=== PATIENT | male | born 1950 | race Caucasian/White ===

== ENCOUNTER 2022-12-14 20:43 | Inpatient (IN) | payer OTHER ==
[~2022-12-14] VITALS: Ht 185.4 cm; Wt 83.7 kg
[~2022-12-14 20:43] MED LIST: PIOG30 PO; THERA-D2000 UNIT PO; XARELTO20 MG PO
[2022-12-14 21:05] LABS: BASOPHILS ABSOLUTE AUTO 0.11 K/mm3 (0.00-0.23); BASOPHILS PERCENT AUTO 1 % (0-2); EOSINOPHILS ABSOLUTE AUTO 0.14 K/mm3 (0.00-0.68); EOSINOPHILS PERCENT AUTO 2 % (0-6); Hematocrit 42.9 % (37.0-53.0); Hemoglobin 14.4 g/dL (13.5-17.5); IMMATURE GRAN ABSOLUTE AUTO 0.01 K/mm3 (0.00-0.10); IMMATURE GRAN PERCENT AUTO 0 % (0-1); LYMPHOCYTES ABSOLUTE AUTO 0.89 K/mm3 (0.84-5.20); LYMPHOCYTES PERCENT AUTO 10 % (21-46); MONOCYTES PERCENT AUTO 8 % (4-13); Mean Corpuscular HGB 28.7 pg (26.0-34.0); Mean Corpuscular HGB Conc 33.6 g/dL (31.5-36.5); Mean Corpuscular Volume 86 fL (80-100); Mean Platelet Volume 9.6 fL (9.1-12.4); NEUTROPHILS ABSOLUTE AUTO 7.46 K/mm3 (1.96-9.15); NEUTROPHILS PERCENT AUTO 80 % (41-73); Platelet Count 417 K/mm3 (150-400); RDW Coefficient Variation 14.1 % (11.7-14.2); RDW Standard Deviation 43.3 fL (35.1-46.3); Red Blood Cell Count 5.01 M/mm3 (4.30-5.90); White Blood Cell Count 9.31 K/mm3 (4.00-11.30)
[2022-12-14 21:18] LABS: Albumin, Blood 3.2 g/dL (3.4-5.0); Albumin/Globulin Ratio 0.9 (0.8-1.8); Bilirubin, Total 0.6 mg/dL (0.1-1.0); Bun/Creatinine Ratio 16.7 (12.0-20.0); Calcium, Blood 8.9 mg/dL (8.5-10.1); Creatinine, Blood 1.26 mg/dL (0.60-1.20); Globulin, Blood 3.7 g/dL (2.2-4.0); Potassium, Blood 3.9 mmol/L (3.5-5.5); Total Protein, Blood 6.9 g/dL (6.4-8.2)
[2022-12-14 21:56] LABS: Magnesium, Blood 2.2 mg/dL (1.6-2.4)
[2022-12-14 22:15] LABS: Thyroid Stimulating Hormone 0.842 uIU/mL (0.360-4.800)
[2022-12-14] MEDS ORDERED: METO50ER PO (23:54)
[2022-12-14] MEDS ORDERED: METF500 PO (23:55)
[2022-12-14] MEDS ORDERED: TAMS.4ER PO (23:55)
[2022-12-14] MEDS ORDERED: GABA300 PO (23:55)
[2022-12-14] MEDS ORDERED: DURAMORPH 11 MG/1 M1 PO (23:56)
[2022-12-14] MEDS ORDERED: AMLO5 PO (23:57)
[2022-12-14] MEDS ORDERED: ROSU5 PO (23:57)
[2022-12-14] MEDS ORDERED: LOSA50 PO (23:58)
[2022-12-15] VITALS (13 sets, daily range): BP systolic 140–190; BP diastolic 80–138
[2022-12-15 00:09] LABS: Source, Urine Straight Cath
[2022-12-15 00:12] LABS: Bilirubin, Urine Neg (Neg); Blood, Urine 3+ (Neg); Glucose Qualitative, Urine 2+ (Neg); Ketones, Urine Neg (Neg); Leukocyte Esterase, Urine Neg (Neg); Nitrite, Urine Neg (Neg); Protein, Urine 3+ (Neg); Urobilinogen, Urine NORM (Normal)
[2022-12-15 00:28] LABS: U Amphetamine Screen Not Detected; U Barbituate Screen Not Detected; U Benzodiazapine Screen Not Detected; U Buprenorphine Screen Not Detected; U Cannabinoids Screen Not Detected; U Cocaine Screen Not Detected; U Methadone Screen Not Detected; U Methamphetamine Screen Not Detected; U Opiates Screen DETECTED; U Oxycodone Screen Not Detected; U Phencyclidine Screen Not Detected; U Propoxyphene Screen Not Detected
[2022-12-15 00:41] LABS: Appearance, Urine Clear (Clear); Color, Urine Yellow (P-Yellow)
[2022-12-15 00:42] LABS: White Blood Cells, Urine 0-2 /hpf (0-5)
[2022-12-15 00:43] LABS: Bacteria Rare /hpf; Hyaline Casts 0-2 /lpf (0-2); Squamous Epithelial Cells Rare /hpf (Few)
--- NOTE | 2022-12-15 02:43 | NUR ---
ADMITTED AROUND 0200 FROM ED. PT IS DROWSY BUT AROUSABLE, AOX2, COOPERATIVE. VSS ON RA. NPO. INCONTINENT OF URINE. TELE PLACED, AFIB. LATERAL R FOOT WITH SMALL DIABETIC ULCER, BLANCHABLE SACRAL REDNESS, WILL PLACE MEPILEX AND TURN Q2. FULL L SIDE DEFICITS.
[2022-12-15 05:49] LABS: BASOPHILS ABSOLUTE AUTO 0.09 K/mm3 (0.00-0.23); BASOPHILS PERCENT AUTO 1 % (0-2); EOSINOPHILS ABSOLUTE AUTO 0.06 K/mm3 (0.00-0.68); EOSINOPHILS PERCENT AUTO 1 % (0-6); Hematocrit 43.1 % (37.0-53.0); Hemoglobin 14.6 g/dL (13.5-17.5); IMMATURE GRAN ABSOLUTE AUTO 0.01 K/mm3 (0.00-0.10); IMMATURE GRAN PERCENT AUTO 0 % (0-1); LYMPHOCYTES ABSOLUTE AUTO 0.85 K/mm3 (0.84-5.20); LYMPHOCYTES PERCENT AUTO 10 % (21-46); MONOCYTES ABSOLUTE AUTO 0.82 K/mm3 (0.16-1.47); MONOCYTES PERCENT AUTO 10 % (4-13); Mean Corpuscular HGB 28.6 pg (26.0-34.0); Mean Corpuscular HGB Conc 33.9 g/dL (31.5-36.5); Mean Corpuscular Volume 84 fL (80-100); Mean Platelet Volume 10.2 fL (9.1-12.4); NEUTROPHILS ABSOLUTE AUTO 6.83 K/mm3 (1.96-9.15); NEUTROPHILS PERCENT AUTO 79 % (41-73); Platelet Count 434 K/mm3 (150-400); RDW Coefficient Variation 13.7 % (11.7-14.2); RDW Standard Deviation 42.5 fL (35.1-46.3); Red Blood Cell Count 5.11 M/mm3 (4.30-5.90); White Blood Cell Count 8.66 K/mm3 (4.00-11.30)
[2022-12-15 06:19] LABS: Albumin, Blood 3.1 g/dL (3.4-5.0); Albumin/Globulin Ratio 0.8 (0.8-1.8); Bilirubin, Total 0.7 mg/dL (0.1-1.0); Bun/Creatinine Ratio 17.1 (12.0-20.0); Calcium, Blood 8.8 mg/dL (8.5-10.1); Globulin, Blood 3.8 g/dL (2.2-4.0); Magnesium, Blood 2.4 mg/dL (1.6-2.4); Potassium, Blood 3.9 mmol/L (3.5-5.5); Total Protein, Blood 6.9 g/dL (6.4-8.2)
--- NOTE | 2022-12-15 11:30 | NUR ---
Received call from [facility] earlier this AM and discussed case. Pt recommended NPO at this time. Pt and family may benefit from Palliative Care visit. Spoke with Primary RN Laura and discussed case. Pt resting in bed with his eyes closed. Pt remains with his eyes closed throughout visit. Pt's daughter Jany at bedside. Offered supportive visit to Jany. Jany reports living in [place] and drove down last night. Reviewed plan of care and offered therapeutic listening. Jany reports having to drive down a few times due to Pt being hospitalized over recent past. She reports having conversation with Pt and he does not plan to have PEG tube placed. She reports he would rather focus on comfort if he does not regaine a safe swallow. Continued therpaeutic listening and validated concerns. Jany expresses appreciation and reports no other concerns at this time. Jany agreeable for continued PC visits. She does request a fender mechanic apprentice visit. Spoke with Party Planner Tim and relayed request. Palliative Care will remain available
--- NOTE | 2022-12-15 11:46 | NUR ---
Spiritual care visit conducted. Patient is lying in bed and sleeping. Jany, patient's dtr is bedside. She explains about her father's medical history and the that the next day or two will bring clarity about what direction the medical plan of care will head. She talks about her spouse and that they are located in [facility] and that she has been driving to [place] every eight weeks or less to take care of things with her dad. She talks about the ups and downs of his situation and how that has an emotionally draining effect. I normalize her experience, and provide therapeutic listening and exploration of patient's Yarsanism background. We decide to find a time when patient is awake for a time of prayer and blessing of the sick. I will continue to remain available to patient and family.
[2022-12-15] MEDS ORDERED: Morphine Sulfat15 MG PO (13:58)
[2022-12-15] MEDS ORDERED: MORP15ER PO (13:59)
--- NOTE | 2022-12-15 19:25 | NUR ---
SHIFT SUMMARY: TACHYCARDIC TO 150'S THIS EVENING; LOPRESSOR GIVEN WITH HR DECREASED TO 110'S TO 120'S PER TELEMETRY. OXYGEN INCREASED TO 2 L/MIN NC TO KEEP O2 SAT > 92%; HAS PRODUCTIVE BUT VERY WEAK COUGH, SUCTIONING ORALLY PRN. SOMNOLENT MOST OF THE DAY, AROUSED TO SPEECH BETTER THIS MORNING. L SIDE FLACCID, L FACIAL DROOP, STRICT NPO HE IS UNABLE TO SWALLOW. REQUESTED AND RECEIVED MEDICATION LIST FROM [facility] AND MEDICATIONS UPDATED IN [employer]. INCONTINENT OF URINE, ATTENDS IN PLACE. DAUGHTER NEETU AT BEDSIDE ALL DAY.
[2022-12-16] VITALS (8 sets, daily range): BP systolic 124–171; BP diastolic 58–98
--- NOTE | 2022-12-16 00:04 | NUR ---
PT WAS HYPOXIC AT 80-86%, HYPERTENSIVE WITH SBP 160-190, AND TACHYCARDIC SUSTAINING 140S LETHARGIC AT START OF SHIFT WITH CONGESTED LUNGS. RT WAS NOTIFIED AND DEEP SUCTIONED MULTIPLE TIMES. DEEP SUCTIONING IMPROVED OXYGENATION FOR A SHORT TIME. PT WAS PLACED ON 12 L 02 BY RT. ORDERED DILTIAZEM FOR HR AND DISCONTINUED FLUIDS. HR IMPROVED FOR APPROXIMATELY 1.5 HOURS. PT FREQUENTLY PULLING O2 OFF, EVEN WITH CONTINUOUS VERBAL REMINDERS TO KEEP IT ON. TRANSFERRED TO PCU AFTER 2200.
--- NOTE | 2022-12-16 00:59 | NUR ---
TRANSFER TO [facility] PT ARRIVED TO [facility] AT APPROXIMATELY 2300. PT WAS TRANSFERED VIA HOSPITAL BED BY MEDICAL FLOOR RN AND RT. PT WEARING 15L VIA NC DURING TRANSFER, PT PLACED ON BIPAP ONCE IN PCU ROOM. RT AT BEDSIDE ADJUSTING BIPAP SETTINGS. PT SAYING WORDS BUT NOT SENTENCES PRIOR TO BIPAP MASK BEING PLACED, PT NOT ANSWERING QUESTIONS. PT WITH LEFT SIDE DEFICIT AND FACIAL DROOP. PT PULLING AT BIPAP WITH RIGHT ARM, NOT FOLLOWING DIRECTIONS. BP ELEVATED, AFIB 140-170's, CARDIZEM gtt INITIATED PER EMAR. SpO2> 92% ON BIPAP 14/7 65% FiO2, RR 30-40's. PT WITH LARGE INCONTINENT VOID AND SMALL INCONTINENT BM, LINEN CHANGE, RAYMOND CARE PROVIDED, AND CONDOM CATHETER PLACED UPON ARRIVAL. PT BEGAN TO RELAX ONCE SETTLED, NOW RESTING COMFORTABLY. CALL LIGHT IN REACH, BED IN LOWEST POSITION, BED ALARM ON. PT ON CONTINUOUS CARDIAC AND SpO2 MONITORING, DAUGHTER ON HER WAY TO STAY AT BEDSIDE WITH PT.
[2022-12-16 04:02] LABS: Hematocrit 43.6 % (37.0-53.0); Hemoglobin 14.8 g/dL (13.5-17.5); Mean Corpuscular HGB 28.3 pg (26.0-34.0); Mean Corpuscular HGB Conc 33.9 g/dL (31.5-36.5); Mean Corpuscular Volume 83 fL (80-100); Mean Platelet Volume 9.8 fL (9.1-12.4); Platelet Count 413 K/mm3 (150-400); RDW Coefficient Variation 13.8 % (11.7-14.2); RDW Standard Deviation 42.1 fL (35.1-46.3); Red Blood Cell Count 5.23 M/mm3 (4.30-5.90)
[2022-12-16 04:21] LABS: Bun/Creatinine Ratio 16.9 (12.0-20.0); Calcium, Blood 8.8 mg/dL (8.5-10.1); Creatinine, Blood 1.18 mg/dL (0.60-1.20); Potassium, Blood 3.3 mmol/L (3.5-5.5)
--- NOTE | 2022-12-16 04:33 | NUR ---
SHIFT SUMMARY PT A&Ox1-2, SAYING WORDS BUT NOT SENTENCES PRIOR TO BIPAP MASK BEING PLACED, PT NOT ANSWERING QUESTIONS. PT WITH LEFT SIDE DEFICIT AND FACIAL DROOP. PT PULLING AT BIPAP WITH RIGHT ARM, NOT FOLLOWING DIRECTIONS. BP ELEVATED, AFIB 100-130's, CARDIZEM gtt @ 15mg/hr, TITRATED PER EMAR. PT WITH A FEW SHORT RUNS OF V-TACH. SpO2> 92% ON BIPAP 16/8 60% FiO2, RR 30's. T-MAX 101.4, ADMINISTERED TYLENOL PA. PT INCONTINENT, PULLED CONDOM CATHETER OFF, LEFT ATTENDS IN PLACE. DAUGHTER AT BEDSIDE. NO OTHER EVENTS, WILL REPORT TO ONCOMING RN.
--- NOTE | 2022-12-16 08:08 | NUR ---
Dr. Dumont here, talking with pt's daughter Jany, adressing her concerns about the pt's comfort. She says that the pt was very restless last night and she wants him to be comfortable so that he can rest and heal.
--- NOTE | 2022-12-16 09:11 | NUR ---
Santo NG here from palliative care to talk with Jany, daughter.
--- NOTE | 2022-12-16 09:39 | NUR ---
Pt was not opening his eyes spontaneously, attempted to open his eyes when asked, but did not open them completely. He squinted and resisted passive opening of eyes by RN for assessment. Wearing the bipap 16/8 and 55% fio2. Very difficult to arouse. Initially did not respond to requests to rivet hole machine operator my hands, but after his daughter talked to him he did rivet hole machine operator on the right. He did have some spontaneous movements of his right arm, to his face to adjust the O2 tubing and when oral care was done he moved his head, closed his mouth, and resisted the care. he appears to be withdrawn, lethargic. RR is 23/minute, and spo2 94% at this time. Daughter Jany at the bedside at this time.
--- NOTE | 2022-12-16 10:55 | NUR ---
Blood sugar checked, insulin given. Pt does not respond; no flinching noted. He does not open his eyes to conversation, nor to the treatments. He is on bipap.
--- NOTE | 2022-12-16 11:16 | NUR ---
Supportive visit this AM. Pt resting in bed with his eyes closed. Pt's daughter Jany at bedside. Reviewed events that happened overnight and offered therapeutic listening. Jany reports wanting to wait to see if Pt can swallow safely before making any decisions. She reports hoping that Pt can wake and make his decisions known before she is required but reports understanding that she may need to make decision at some point. Continued therapeutic listening and validated concerns. Spoke with [facility], Primary RN Christianne and discussed case. Pt refused to work with [facility] this AM. Palliative Care will remain available
--- NOTE | 2022-12-16 12:20 | NUR ---
Spiritual care visit conducted. Patient's family is present in the room, patient is sleeping. They explain about the developements over night and express their concerns. They talk about the tension of waiting and wondering if the patient can recover from his current status. They ask for prayer and all gather around the patient's bed and I provide prayer for the patient and the family. The family becomes tearful but voices great appreciation at the same time. They show signs of being comforted and strengthened by the prayer. I will continue to remain available to patient and family.
--- NOTE | 2022-12-16 14:32 | NUR ---
Pt is more responsive verbally. He was able to answer some simple questions. Asked to open his eyes, and he was not able to fully open them, but did say, "I'm trying". Pt has not voided yet this shift; asked if he needed to pee, he said yes, but was not able to void in the urinal. He kept falling asleep. Bladder scan done and 322 cc noted. Son and daughter in law are at the bedside. Pt appears comfortable, resting with his eyes closed. Wearing the bipap. Vital signs noted stable at this time.
--- NOTE | 2022-12-16 14:52 | NUR ---
AUTOMOTIVE HEAVY MECHANIC states pt c/o knee pain. His son said that he has chronic knee pain, and has been taking morphine for at least 10 years.
[2022-12-16 23:26] LABS: Base Excess Venous 2.5 mmol/L; Bicarbonate Venous 26.6 mmol/L (24.0-30.0); PCO2 Venous 35.5 mmHg (38-42); pH Blood Venous 7.48 (7.34-7.37)
[2022-12-17 04:00] VITALS: BP 127/89
[2022-12-17 04:20] LABS: Hematocrit 39.6 % (37.0-53.0); Hemoglobin 13.2 g/dL (13.5-17.5); Mean Corpuscular HGB Conc 33.3 g/dL (31.5-36.5); Mean Corpuscular Volume 84 fL (80-100); Mean Platelet Volume 10.1 fL (9.1-12.4); Platelet Count 378 K/mm3 (150-400); RDW Coefficient Variation 13.9 % (11.7-14.2); RDW Standard Deviation 43.2 fL (35.1-46.3); Red Blood Cell Count 4.72 M/mm3 (4.30-5.90); White Blood Cell Count 11.48 K/mm3 (4.00-11.30)
--- NOTE | 2022-12-17 04:30 | NUR ---
SHIFT SUMMARY PT A&Ox3-4, ANSWERS QUESTIONS AND SAYS SHORT STATEMENTS. SPEECH MUCH MORE CLEAR COMPAIRED TO PREVIOUS WATER SUPPLY TECHNICIAN. PT WITH LEFT SIDE DEFICIT AND FACIAL DROOP. PT PULLING AT BIPAP WITH RIGHT ARM A FEW TIMES, SOMEWHAT REDIRECTABLE, MANAGED PER EMAR. BP STABLE, AFIB 90-160's, CARDIZEM gtt @ 10mg/hr, SEE EMAR FOR TITRATION. SpO2> 92% ON BIPAP 13/6 45% FiO2, RR 20-30's. PT INCONTINENT OF URINE, ATTENDS IN PLACE, NO BM THIS SHIFT. NO OTHER EVENTS, WILL REPORT TO ONCOMING RN.
[2022-12-17 04:44] LABS: Anion Gap 2 mmol/L (6-16); Blood Urea Nitrogen 35 mg/dL (8-24); Bun/Creatinine Ratio 32.7 (12.0-20.0); CO2, Blood 28 mmol/L (21-32); Calcium, Blood 8.7 mg/dL (8.5-10.1); Chloride, Blood 107 mmol/L (98-108); Creatinine, Blood 1.07 mg/dL (0.60-1.20); Glomerular Filtration Rate 74 (60-); Glucose, Blood 354 mg/dL (70-99); Magnesium, Blood 2.3 mg/dL (1.6-2.4); Phosphorus, Blood 1.8 mg/dL (2.5-4.9); Potassium, Blood 3.8 mmol/L (3.5-5.5); Sodium, Blood 137 mmol/L (136-145); Triglycerides 81 mg/dL (30-160)
[2022-12-17 07:18] VITALS: BP 134/98
--- NOTE | 2022-12-17 07:18 | NUR ---
RT just finished deep suctioning the patient. His lungs sound coarse, but per NOC RN his spo2 and RR are improved. Daughter Jany is at the bedside. PT appears to be resting comfortably. RR 22, spo2 97% on BIPAP settings 13/5 45%.
--- NOTE | 2022-12-17 09:29 | NUR ---
Supportive visit this AM. Pt resting in bed with his eyes closed on BIPAP. Dr Canas at bedside speaking with daughter Jany reviewing plan of care. Plan is to maintane current plan for a couple more days. Jany expresses appreciation and reports no concerns at this time. Spoke with Primary RN Christianne and discussed case. Palliative Care will remain available
[2022-12-17 11:27] VITALS: BP 119/82
[2022-12-17 17:45] VITALS: BP 136/77
[2022-12-17 19:28] VITALS: BP 144/71
[2022-12-17 23:00] VITALS: BP 154/106
[2022-12-18] VITALS (10 sets, daily range): BP systolic 130–161; BP diastolic 67–93
--- NOTE | 2022-12-18 04:16 | NUR ---
SHIFT SUMMARY PATIENT REPSONDS TO VERBAL STIMULI, FOLLOWS SOME SIMPLE COMMANDS AND ATTEMPTS TO OPEN EYES. ORIENTED X SELF. 02 SATS 95% ON 11L VIA HF NC. LS COARSE, SUCTIONING THICK YELLOW SECRETIONS FROM MOUTH. RT TO ROOM AND DEEP SUCTIONED ONCE THIS SHIFT. RR REMAINS IN THE 20s. HR A.FIB 90s-120s, CARDIZEM GTT REMAINS INF. BP STABLE. MEDICATED FOR BACK PAIN PRN. PATIENT REPOSITIONED. INCONTINENT, ATTENDS IN PLACE. ORAL CARE DONE Q2 HOURS. CALL LIGHT IN REACH
[2022-12-18 04:17] LABS: BASOPHILS ABSOLUTE AUTO 0.04 K/mm3 (0.00-0.23); BASOPHILS PERCENT AUTO 0 % (0-2); EOSINOPHILS ABSOLUTE AUTO 0.05 K/mm3 (0.00-0.68); EOSINOPHILS PERCENT AUTO 1 % (0-6); Hematocrit 38.9 % (37.0-53.0); Hemoglobin 13.1 g/dL (13.5-17.5); IMMATURE GRAN ABSOLUTE AUTO 0.04 K/mm3 (0.00-0.10); IMMATURE GRAN PERCENT AUTO 0 % (0-1); LYMPHOCYTES ABSOLUTE AUTO 0.86 K/mm3 (0.84-5.20); LYMPHOCYTES PERCENT AUTO 9 % (21-46); MONOCYTES ABSOLUTE AUTO 1.06 K/mm3 (0.16-1.47); MONOCYTES PERCENT AUTO 11 % (4-13); Mean Corpuscular HGB 28.4 pg (26.0-34.0); Mean Corpuscular HGB Conc 33.7 g/dL (31.5-36.5); Mean Corpuscular Volume 84 fL (80-100); NEUTROPHILS ABSOLUTE AUTO 7.71 K/mm3 (1.96-9.15); NEUTROPHILS PERCENT AUTO 79 % (41-73); Platelet Count 304 K/mm3 (150-400); RDW Coefficient Variation 13.9 % (11.7-14.2); RDW Standard Deviation 42.5 fL (35.1-46.3); Red Blood Cell Count 4.62 M/mm3 (4.30-5.90); White Blood Cell Count 9.76 K/mm3 (4.00-11.30)
[2022-12-18 04:31] LABS: Magnesium, Blood 2.4 mg/dL (1.6-2.4)
[2022-12-18 04:32] LABS: Bun/Creatinine Ratio 37.3 (12.0-20.0); Calcium, Blood 8.8 mg/dL (8.5-10.1); Creatinine, Blood 1.02 mg/dL (0.60-1.20); Phosphorus, Blood 2.3 mg/dL (2.5-4.9); Potassium, Blood 3.9 mmol/L (3.5-5.5)
--- NOTE | 2022-12-18 09:31 | NUR ---
Pt resting in bed with his eyes closed. Pt more alert today and responds to questions. Pt struggles with opening his eyes on request but eventually is able. Pt's daughter Jany at bedside. Reviewed plan of care and offered supportive visit. Jany expresses appreciation and reports no new concerns at this time. Palliative Care will remain available
--- NOTE | 2022-12-18 15:27 | NUR ---
Spoke with Primary RN Meggan who reports daughter may benefit from another visit today. Pt resting in bed with his eyes closed. Pt appeared comfortable with no S/S of distress at this time. Pt's daughter Jany at bedside. Jany is intermittently tearful. Offered emotional support and validated concerns. Jany reports most likely will elect hospice tomorrow. She reports plan for a delivery rn to come in today and administer last rights. Continued supportive visit. Jany expresses appreciation and reports no new concerns at this time. Palliative Care will remain available.
--- NOTE | 2022-12-18 17:35 | NUR ---
SUMMARY PT WAS MORE ALERT THIS AM. THE DAY GOES ON HE IS LESS ORIENTED. ABLE TO MOVE R ARM AND LEG. L SIDE IS FLACCID. EVEN WITH ASSESSING PUPILS RN IS ABLE TO OPEN L EYE BUT PT CLAMPS R EYE SHUT. LS COARSE T/O. DID NOT NT SUCTION PER DAUGHTERS REQUEST SHE DOES NOT WANT TO PUT PT THROUGH THE STRESS. DAUGHTER NEETU AT BEDSIDE ALL DAY AND SUPPORTIVE.
[2022-12-19 04:54] VITALS: BP 147/93
--- NOTE | 2022-12-19 06:03 | NUR ---
SHIFT SUMMARY ASSUMED CARE OF PT AT 1900. PT IS ALERT BUT DROWSY. PT ABLE TO SAY NAME, AND DATE OF . PT KEPT EYES CLOSED WHEN TALKING AND UNABLE TO ASSESS R PUPIL DUE TO NOT OPENING EYE. PT L SIDE IS FLACCID. PT ABLE TO MOVE R LEG AND ARM. PT WAS ABLE TO BE TITRATED OFF CARDIZEM GTT FOR 4 HOURS BEFORE HR INCREASED TO 130S AGAIN; PT BACK ON GTT. LUNG SOUNDS COARSE, PT DEEP SUCTIONED VIA RT ONCE. ORAL CARE Q2. PT WAS INCONTINENT DURING THE NIGHT. PT HAS A MEPILEX ON BUTTOCK DUE TO BREAK DOWN. PT TURNED Q2. DAUGHTER LEFT PT AT 0130 DUE TO BEING TIRED. DAUGHTER ASKED OF PT WAS GOING TO GET PEG TUBE IN THE AM.
[2022-12-19 06:06] LABS: Bun/Creatinine Ratio 37.1 (12.0-20.0); Calcium, Blood 8.9 mg/dL (8.5-10.1); Creatinine, Blood 1.05 mg/dL (0.60-1.20); Magnesium, Blood 2.4 mg/dL (1.6-2.4); Phosphorus, Blood 3.2 mg/dL (2.5-4.9); Potassium, Blood 4.1 mmol/L (3.5-5.5)
[2022-12-19 07:32] VITALS: BP 131/86
[2022-12-19 11:47] VITALS: BP 140/77
[2022-12-19 16:15] VITALS: BP 143/105
--- NOTE | 2022-12-19 17:17 | NUR ---
Pal Care visit and Case conference with bedside RN before and after my visit. Reggie, Jany, and neighbor, November at the bedside. Pt slept t/o out my visit. RN and reggie report that Day discussed options with pt and Dr earlier today and pt stated he wants to try a feeding tube to see if nutritional support will help him get stronger with goal of getting to rehab. I discussed peg tube placement and cautioned that aspiration may still be a risk for pt. I inquired re: LTC plan after rehab if pt does improve, and is able to progress with rehab stay. Reggie states she is hopeful that her dad will be agreeable to moving to [place] and into her home. We agreed the focus is currently on daily improvement and that she would discuss that thought with him when it was appropriate. She is clear that if her dad's status were to decline, despite nutritional support she would like to reconsider EOL/hospice care at that time but for now is putting that on hold. Support and encouragement offered. Planned with reggie to check in daily and invited her to reach out to us with any questions/concerns re: goals/plan of care. Reggie appreciative of visit. She planned to leave for a bit to get some sleep, which I highly encouraged, after my visit. Update to pt's RN on my visit.
--- NOTE | 2022-12-19 19:02 | NUR ---
SHIFT SUMMARY: DAUGHTER HAS BEEN AT THE BEDSIDE MOST OF THE SHIFT. PT REMAINS LETHARGIC, CAN ALERT AND ORIENTED ONLY TO SELF AND DAUGHTER, CAN ANSWER SOME QUESTIONS MOSTLY SLOW TO RESPOND, LEFT SIDED DEFICIT, PT HAS BEEN REPOSITIONED Q2 HRS. VITALS HRR AFIB 90-110'S, PT STILL AT CARDIZEM GTT AT 5MG/HR, SBP 140'S, SATS ABOVE 90% ON 30L 80% FIO2 PT AHS MOIST PRODUCTIVE COUGH SUCTIONED PRN, MOSIT SWABS AND ORAL CARE PROVIDED. FEBRILE AT 100-101 TYLENOL SUPP PRN GIVEN, RR 25-30'S. PT INCONTINET OF BOWTH BOWEL AND BLADDER ATTENDS IN PLACE. PAIN MEDS WAS GIVEN FOR "ALL OVER" PAIN TWICE FOR SILVER SHIFT. PT WORKED WITH SPEECH THERAPIST GLORIA EVAL AGAIN, PLAN FOR PEG TUBE PLACEMENT, DR POWER CONSULTED. CLINIMIX RUNNING ST 100MLS/HR. PT REMAINS RESTING IN BED CALL LIGHTS IN REACH WILL REPORT TO ONCOMING SHIFT
[2022-12-19 20:00] VITALS: BP 154/79
[2022-12-20] VITALS: BP 143/78
[2022-12-20 04:15] VITALS: BP 140/82
--- NOTE | 2022-12-20 06:49 | NUR ---
SHIFT SUMMARY PT A&O X2-3. PT FOLLOWS COMMANDS AND RESPONDS TO QUESTIONS. PT OPENS EYES WHEN ASKED TO BUT ONLY ARE OPEN BRIEFLY. VSS; PT REMAINS IN AFIB HR 90-1 TEENS. CARDIZEM GTT INFUSING AT 10 MLS/HR. PT CONTINUES TO HAVE PRODUCTIVE COUGH, ALTHOUGH SUCTIONING HAS DECREASED PT IS ABLE TO CLEAR AIRWAY AND COUGH SELF. PT ON AIRVO AT 30 L, 100% FIO2. PT OCCASSIONALLY PULLING AT NC BUT ABLE TO BE REDIRECTED AND REMINDED OF NEED FOR IT. FAMILY AT BEDSIDE ON AND OFF THROUGHOUT SHIFT. PT FEBRILE AT 101.3 - 101.3. TYLENOL ADMINISTERED PER EMAR; WITH LITTLE CHANGE. WILL UPDATE ONCOMING RN
[2022-12-20 07:44] VITALS: BP 143/82
--- NOTE | 2022-12-20 09:40 | NUR ---
AM NOTE: RECEIVED REPORT FROM NOC SHIFT RN. PT ALERT AND ORIENTED X2-3. COOPERATIVE WITH CARE. PT ON AIRVO AT THIS TIME WITH SETTINGS 40L, 100% FIO2 SATS IN THE MID 90'S. SBP 140'S WITH HR 110'S-120'S WHILE IN AFIB. NO C/O CHEST PAIN OR PRESSURE AT THIS TIME. PT DENIES PAIN ANYWHERE ELSE. PT TEMP REMAINS IN THE 101 RANGE AND WAS MEDICATED PER OCT. PT HAS CLINIMIX GTT AT 100 ML/HR, CARDIZEM GTT AT 10 ML/HR. PT DAUGHTER AT THE BEDSIDE. PT REMAINS ON BEDREST WITH Q2 TURNS. PT RESPONDS TO QUESTIONS BUT WILL NOT OPEN EYES WHEN ASKED. PT NPO AT THIS TIME WITH PLANS FOR A PEGTUBE. Q2 ORAL CARE BEING DONE. CALL LIGHT IN REACH, WILL CONTINUE TO MONITOR T/O SHIFT.
--- NOTE | 2022-12-20 10:38 | NUR ---
PT C/O CHEST PAIN UPON REPOSITIONING THAT LSATED ABOUT COUPLE MINUTES PT WAS NOT REALLY ABLE TO RATE THE PAIN BUT STATED "YES" WHEN ASKED IF IT WAS EXCRUCIATING. VITALS HRR REMAINED AFIB 90-110'S, SBP 130'S, RR >30'S, FEBRILE AT 100.8, STILL ON AIRVO SETTINGS 40L 100% FIO2 SATTING BETWEN 90-95%. DR HAWKINS CALLED AND MADE AWARE, ORDER FOR CHEST XRAY 1V, AND EKG 12L IF CHEST PAIN RE OCCURS. DAUGHTER AT BEDSIDE MOSTLY COMMUNICATE WITH THE PT. PAIN HAS SUBSIDED AT THIS TIME. WILL CONTINUE TO MONITOR
[2022-12-20 11:17] VITALS: BP 148/99
[2022-12-20 16:11] VITALS: BP 133/96
--- NOTE | 2022-12-20 17:55 | NUR ---
SHIFT SUMMARY: NO ACUTE EVENTS T/O THE SHIFT. CAME BY TO SEE THE PT REGARDING THE PEG TUBE PLACEMENT WITH PLANS FOR PROCEDURE TOMORROW. PT HR REMAINS IN THE 90'S-100'S WITH CARDIZEM GTT RUNNING AT 10 ML/HR WHILE STILL IN AFIB. PT WORKED WITH PHYSICAL THERAPY TODAY, ABLE TO SIT ON THE BEDSIDE WITH ASSISTANCE. PT REMAINS ON AIRVO WITH SETTINGS 40L/85% FIO2, NO COMPLAINTS OF SHORTNESS OF BREATH. NO FURTHER C/O CHEST PAIN OR PRESSURE SINCE THIS MORNING. CHEST X-RAY DONE, PROVIDER TO REVIEW. PT REPOSITION Q2 HOURS, WITH FREQUENT SUCTIONING DONE PRN, ORAL CARE Q2 HOURS. EDUCATED ON THE USE OF THE FLUTTER VALVE BY RT. DAUGHTER AT THE BEDSIDE THIS MORNING AND AWARE OF THE PLAN OF CARE. WILL CONTINUE TO MONITOR AND GIVE REPORT TO ONCOMING NOC SHIFT NURSE.
[2022-12-20 20:00] VITALS: BP 148/72
--- NOTE | 2022-12-20 20:19 | NUR ---
ASSUMPTION OF CARE THIS RN ASSUMED CARE OF PT AT 1900, REPORT FROM RN THIERNO AND BEER MAKER. FAMILY AT BEDSIDE AT THIS TIME. PT IN ROOM, EYES ARE CLOSED BUT DOES OPEN THEM BRIEFLY WHEN ASKED. PT A&O X 2-3. PT MORE INTERACTIVE AND ANSWERING MORE QUESTIONS TODAY THAN YESTERDAY. PT SEEMS TO BE ANSWERING MUCH QUICKER THAN PREVIOUS WELL. VSS. PT ON AIRVO; 40 L, 75% FIO2. SPO2 90 - 94%. PT LUNG SOUNDS STILL COURSE AND SCATTERED RHONCI THROUGHOUT. PT IS COUGHING FREQUENTLY ON HIS OWN, WELL THIS RN ENCOURAGING PT TO COUGH SPUTUM UP AND CLEAR LUNGS. PT FOLLOWING COMMANDS WELL. ORAL CARE COMPLETED AT THIS TIME WELL. PT DENIES PAIN. DENIES CP OR PRESSURE. STATES HE IS "DOING ALRIGHT, BETTER THAN BEFORE". FLUTTER VALVE THERAPY COMPLETED AT THIS TIME WELL. PT ABLE TO SQUEEZE R HAND; STRENGTH INTACT. L HAND STILL UNABLE TO BE USED OR RESPOND TO COMMANDS. PT ABLE TO PUSH FEET AGAINST THIS RN'S HAND AND LIFT UP AGAINST GRAVITY' R SIDE STRONG AND INTACT. L SIDE WEAK BUT IS ABLE TO MOVE AND PUSH AGAINST GRAVITY. PT ABLE TO FEEL THIS RN TOUCH TO L FOOT BUT DENIES BEING ABLE TO FEEL TOUCH TO L EXTREMITY. PT COMFORTABLE AND DENIES ANY NEEDS AT THIS TIME. CLINIMIX INFUSING PER EMAR. CARDIZEM GTT INFUSING AT 10 MLS/HR; PT REMAINS IN AFIB RHYTHM HR IN 90'S. CALL LIGHT IN REACH ALTHOUGH PT HAS NOT DEMONSTRATED USE OF IT. PT EDUCATED AND REMINDED TO USE IF NEEDS ARISE. PT VERBALIZED UNDERSTANDING.
[2022-12-21] VITALS: BP 174/88
[2022-12-21 04:30] VITALS: BP 137/85
[2022-12-21 04:54] LABS: BASOPHILS ABSOLUTE AUTO 0.05 K/mm3 (0.00-0.23); BASOPHILS PERCENT AUTO 0 % (0-2); EOSINOPHILS ABSOLUTE AUTO 0.14 K/mm3 (0.00-0.68); EOSINOPHILS PERCENT AUTO 1 % (0-6); Hematocrit 38.7 % (37.0-53.0); Hemoglobin 13.3 g/dL (13.5-17.5); IMMATURE GRAN PERCENT AUTO 1 % (0-1); LYMPHOCYTES ABSOLUTE AUTO 1.05 K/mm3 (0.84-5.20); LYMPHOCYTES PERCENT AUTO 7 % (21-46); MONOCYTES ABSOLUTE AUTO 2.41 K/mm3 (0.16-1.47); MONOCYTES PERCENT AUTO 17 % (4-13); Mean Corpuscular HGB 28.4 pg (26.0-34.0); Mean Corpuscular HGB Conc 34.4 g/dL (31.5-36.5); Mean Corpuscular Volume 83 fL (80-100); Mean Platelet Volume 10.5 fL (9.1-12.4); NEUTROPHILS ABSOLUTE AUTO 10.48 K/mm3 (1.96-9.15); NEUTROPHILS PERCENT AUTO 74 % (41-73); Platelet Count 415 K/mm3 (150-400); RDW Coefficient Variation 13.8 % (11.7-14.2); RDW Standard Deviation 40.9 fL (35.1-46.3); Red Blood Cell Count 4.69 M/mm3 (4.30-5.90); White Blood Cell Count 14.23 K/mm3 (4.00-11.30)
[2022-12-21 05:14] LABS: Bun/Creatinine Ratio 42.6 (12.0-20.0); Calcium, Blood 8.5 mg/dL (8.5-10.1); Creatinine, Blood 0.96 mg/dL (0.60-1.20); Potassium, Blood 4.5 mmol/L (3.5-5.5)
--- NOTE | 2022-12-21 06:52 | NUR ---
SHIFT SUMMARY PT'S ORIENTATION REMAINS THE SAME. PT STILL RESPONDING TO QUESTIONS. VSS. PT RECEIVED PAIN MEDICATION X1 DURING SHIFT FOR BACK PAIN. PT REPOSITIONED AND CHANGED Q2 OR PRN. ORAL CARE COMPLETED Q2. CARDIZEM GTT INFUSING AT 10 MLS/HR; PT REMAINS IN AFIB/AFLUTTER W/HR IN 90'S - 100'S. CLINIMIX INFUSING PER EMAR. PT REMAINS ON AIRVO SETTINGS NOW 50 L, 100% FIO2. WILL UPDATE ONCOMING RN
[2022-12-21 07:45] VITALS: BP 136/71
--- NOTE | 2022-12-21 09:49 | NUR ---
AM NOTE: PT ALERT AND ORIENTED X2-3, ABLE TO ANSWER QUESTIONS. PT WILL NOT OPEN EYES WHEN ASKED. PT ON AIRVO WITH SETTINGS AT 40L, 85% FIO2, SATTING IN THE LOW 90'S. PT DESATS WITH EXERTION. DENIES ANY CHEST PAIN/ PRESSURE OR SHORTNESS OF BREATH. SBP 130'S, HR 90'S-100'S IN AFIB. PT HAS CARDIZEM GTT INFUSING AT 10 ML/HR. PLANS TO GO FOR A PEG TUBE PLACEMENT THIS MORNING WITH DR. POWER. PT HAS MINIMAL MOVEMENT IN THE LEFT SIDE, ABLE TO WIGGLE HANDS AND TOES. PT HAD INCREASED OXYGEN REQUIREMENTS WITH MORNING AM CARE, OXYGEN WAS TITRATED UP TO 60L, 100% FIO2, PT DESATTED TO LOW 80'S AND TOOK [address] HAWKINS MADE AWARE AND ORDERED 2 DOSES IV LASIX, WITH PLANS FOR A REPEAT CHEST X-RAY TOMORROW MORNING. PT GETTING PRN SUCTIONING, Q2 HOUR TURNS AND ORAL CARE. DAUGHTER AT THE BEDSIDE AND MADE AWARE OF PLANS. WILL CONTINUE TO MONITOR T/O THE SHIFT.
[2022-12-21 11:06] VITALS: BP 142/71
--- NOTE | 2022-12-21 12:42 | NUR ---
Spiritual care visit conducted. Patient is lying in bed and alert. Patient answers questions in very short sentences but it is wonderful to hear him speaking. Patient's dtr, Jany is bedside and very grateful for her father's improvement. We talk about the plans to have go to a rehab facility until he is strong enough and then she will bring him to her house in [place]. I provide therapeutic listening and prayer. Patient voices his appreciation and shows signs of an elevated mood. I will continue to remain available to patient and family.
[2022-12-21 16:00] VITALS: BP 139/60
--- NOTE | 2022-12-21 18:46 | NUR ---
SHIFT SUMMARY: DR. POWER CAME TO SEE PT ABOUT PEG TUBE PLACEMENT THIS AFTERNOON AND IS GOING TO RE-EVALUATE IN A COUPLE DAYS AFTER HIS LUNGS GET BETTER. PT UP TO THE CHAIR THIS AFTERNOON USING THE LIFT AND TOLERATED WELL. ABLE TO TRANSITION TO HI-FLOW NASAL CANNULA AT 8L WITH SATS IN THE 90'S. PT BACK IN BED, BACK ON AIRVO 40L, 75% FIO2, SATS IN THE HIGH 80'S, LOW 90'S. NO C/O CHEST PAIN, PRESSURE OR SHORTNESS OF BREATH. SBP IN THE 130'S-140'S. HR IN THE 90'S-100'S, CONTINUES TO STAY IN AFIB WITH CARDIZEM GTT AT 10 MG/HR. DAUGHTER AT THE BEDSIDE T/O THE DAY AND UPDATED TO PLAN OF CARE. WILL CONTINUE TO MONITOR AND GIVE REPORT TO THE NOC SHIFT RN.
[2022-12-21 19:40] VITALS: BP 135/78
--- NOTE | 2022-12-21 21:42 | NUR ---
ASSUMPTION OF CARE THIS RN ASSUMED CARE OF PT AT 1900, REPORT FROM THIERNO, BERENICE AND ULTRASONIC WELDING MACHINE OPERATOR CONCHA. PT LYING IN BED, DAUGHTER AT BEDSIDE. PT A&O X 2-3. PT ORIENTED TO SELF, PLACE, AND PERSON. ORIENTED TO FAMILY BUT UNABLE TO IDENITFY DATE/TIME OR SPECIFIC SITUATION. PT INTERACTIVE AND ANSWERING QUESTIONS, PT MUCH MORE TALKATIVE TODAY. SEEMS TO BE INITIATING CONVERSATION MORE THAN PREVIOUS AND IS ASKING QUESTIONS. VSS. PT ON AIRVO 40 L, 75% FIO2, SPO2 92% AT THIS TIME. LUNG SOUNDS STILL COARSE BUT IMPROVED FROM PREVIOUS. PT IS COUGHING ON HIS OWN AND CLEARING SECRETIONS. BP 135/78, HR REMAINS AFIB W/RATE OF 85, RR 25, 100.4 T. PT REPORTS 10/10 PAIN IN HIS RIGHT KNEE AND BACK AT THIS TIME. PT REQUESTING PAIN MEDICATION. PT DENIES ANY OTHER NEEDS AT THIS TIME. CONDOM CATHETER IN PLACE AND DRAINING TO GRAVITY. PT IS VOIDING WELL, URINE IS YELLOW IN COLOR. ATTENDS ALSO IN PLACE. CLINIMIX INFUSING PER EMAR. CARDIZEM GTT INFUSING AT 10 MLS/HR. THIS RN ANSWERED DAUGHTER'S QUESTIONS AND UPDATED HER ON PT SITUATION AND DAY.
[2022-12-22] VITALS (8 sets, daily range): BP systolic 123–152; BP diastolic 72–111
--- NOTE | 2022-12-22 05:46 | NUR ---
SHIFT SUMMARY PT ORIENTATION REMAINS THE SAME, NO NEW NEURO CHANGES. PT STILL TALKATIVE AND INTERACTING. VSS. PT REMAINS ON AIRVO; 40 L AT 75% FIO2. SPO2 92 - 96%. PT LUNG SOUNDS AND SECRETIONS ARE IMPROVING; LESS SUCTIONING REQUIRED. PT REPORTS PAIN IN R KNEE AND BACK THROUGHOUT SHIFT RANGING FROM 7-10/10; MEDICATION PER EMAR. MEDICATION SEEMS TO PROVIDE GOOD RELIEF. REPOSITIONING AND REST ALSO PROVIDED TO HELP WITH PAIN MANAGEMENT. CONDOM CATHETER REMAINS IN PLACE. PT HAD GOOD OUTPUT THIS SHIFT; TOTAL OF 2440 MLS OUT THIS SHIFT. NO BM THIS SHIFT. PT TEMP RANGE FROM 100.3 - 100.6. PT REMAINS IN AFIB W/HR IN 90'S - 100'S. CARDIZEM GTT CONTINUES AT 10 MLS/HR. CLINIMIX INFUSING PER EMAR. CALL LIGHT IN REACH ALTHOUGH PT HAS YET TO USE IT. DAUGHTER ARRIVED THIS AM AND IS AT BEDSIDE. WILL UPDATE ONCOMING RN.
[2022-12-22 12:33] LABS: BASOPHILS ABSOLUTE AUTO 0.07 K/mm3 (0.00-0.23); BASOPHILS PERCENT AUTO 1 % (0-2); EOSINOPHILS ABSOLUTE AUTO 0.33 K/mm3 (0.00-0.68); EOSINOPHILS PERCENT AUTO 3 % (0-6); Hematocrit 38.7 % (37.0-53.0); Hemoglobin 13.3 g/dL (13.5-17.5); IMMATURE GRAN ABSOLUTE AUTO 0.09 K/mm3 (0.00-0.10); IMMATURE GRAN PERCENT AUTO 1 % (0-1); LYMPHOCYTES ABSOLUTE AUTO 1.01 K/mm3 (0.84-5.20); LYMPHOCYTES PERCENT AUTO 9 % (21-46); MONOCYTES ABSOLUTE AUTO 1.39 K/mm3 (0.16-1.47); MONOCYTES PERCENT AUTO 12 % (4-13); Mean Corpuscular HGB 28.2 pg (26.0-34.0); Mean Corpuscular HGB Conc 34.4 g/dL (31.5-36.5); Mean Corpuscular Volume 82 fL (80-100); Mean Platelet Volume 10.6 fL (9.1-12.4); NEUTROPHILS ABSOLUTE AUTO 8.47 K/mm3 (1.96-9.15); NEUTROPHILS PERCENT AUTO 75 % (41-73); Platelet Count 447 K/mm3 (150-400); RDW Coefficient Variation 13.7 % (11.7-14.2); RDW Standard Deviation 40.9 fL (35.1-46.3); Red Blood Cell Count 4.71 M/mm3 (4.30-5.90); White Blood Cell Count 11.36 K/mm3 (4.00-11.30)
[2022-12-22 12:47] LABS: Bun/Creatinine Ratio 43.4 (12.0-20.0); Calcium, Blood 8.1 mg/dL (8.5-10.1); Creatinine, Blood 0.99 mg/dL (0.60-1.20); Potassium, Blood 4.4 mmol/L (3.5-5.5)
--- NOTE | 2022-12-22 14:32 | NUR ---
PT ALERT AND ORIENTED TO PERSON, PLACE, AND FAMILY. SLEEPING ON AND OFF ALL DAY. PT EASILY FALLS ASLEEP DURING CONVERSATION. PT BARELY OPENED EYES UP UNTIL AROUND NOON, THEN PT STARTED TO OPEN EYES FOR SHORT PERIOD OF TIME. BILAT UPPER LUNG SOUNDS COARSE/RHONCHI, DIMINISHED AT BASES. HR 90'S-100'S, AFIB. BOWEL SOUNDS HYPOACTIVE. HERNIA PRESENT. CONDOM CATH CHANGED BEGINNING OF SHIFT. COCCYX RED AND BLANCHABEL, NEW MEPILEX PLACED. MOUTH CARE Q 4 HOURS. TURN Q 2 HRS. BILATERAL SEQUENTIAL DEVICES IN PLACE. PT UP IN CHAIR AROUND 1330. BED BATH GIVEN, GOWN CHANGED. DAUGHTER AT BEDSIDE. DR. PANDA IN ROOM CARDIZE DISCONTINUED. PURCHASING DIRECTOR UPDATED. SEE EMR FOR IV METOPROLOL ORDERS. SPEECH THERAPY IN TO ASSESS WHILE UP IN RECLINER, PT REMAINS NPO. PT TITRATED DOWN FROM 40L @ 75% FIO2 TO 40L @ 65% FIO2, SATING 97%.
--- NOTE | 2022-12-22 17:15 | NUR ---
PT BACK IN BED RESTING. REPOSITIONED, AND SLEEPING. DAUGHTER WENT HOME FOR A COUPLE HOURS, SHE SAID SHE'LL BE BACK TONIGHT.
--- NOTE | 2022-12-22 17:36 | NUR ---
NO ACUTE CHANGES. SEE PREVIOUS NOTES. HR AFIB 90'S-110. TEMP STILL ELEVATED AROUND 100-100.4. PT SLEEPING IN BED. CALL LIGHT WITHIN REACH.
--- NOTE | 2022-12-22 18:07 | NUR ---
THIS RN HAS REVIEWED AND AGREES WITH LOAD MIXER DOCUMENTATION.
[2022-12-23] VITALS (18 sets, daily range): BP systolic 99–147; BP diastolic 56–105
[2022-12-23 03:49] LABS: Hematocrit 41.8 % (37.0-53.0); Hemoglobin 14.2 g/dL (13.5-17.5); Mean Corpuscular HGB 27.8 pg (26.0-34.0); Mean Corpuscular Volume 82 fL (80-100); Mean Platelet Volume 10.7 fL (9.1-12.4); Platelet Count 519 K/mm3 (150-400); RDW Coefficient Variation 13.3 % (11.7-14.2); Red Blood Cell Count 5.11 M/mm3 (4.30-5.90); White Blood Cell Count 11.95 K/mm3 (4.00-11.30)
[2022-12-23 04:19] LABS: Albumin, Blood 1.7 g/dL (3.4-5.0); Albumin/Globulin Ratio 0.4 (0.8-1.8); Bilirubin, Total 0.8 mg/dL (0.1-1.0); Bun/Creatinine Ratio 45.2 (12.0-20.0); Calcium, Blood 8.3 mg/dL (8.5-10.1); Creatinine, Blood 0.93 mg/dL (0.60-1.20); Magnesium, Blood 2.4 mg/dL (1.6-2.4); Potassium, Blood 4.3 mmol/L (3.5-5.5); Thyroid Stimulating Hormone 1.09 uIU/mL (0.360-4.800); Total Protein, Blood 5.7 g/dL (6.4-8.2)
--- NOTE | 2022-12-23 05:39 | NUR ---
SHIFT SUMMARY PT IS A&OX2, SELF AND FAMILY. HE AWAKES TO VERBAL AND PHYSICAL STIMULI BUT IS FAIRLY DROWSY. PT IS CONFUSED, BUT NOT IMPULSIVE. HE HAS LEFT SIDED NEGLECT SINCE THE STROKE. HE IS UNABLE TO LIFT HIS L ARM AND L LEG BUT HE IS ABLE TO MOVE HIS FINGERS AND TOES. HE IS VERY WEAK IN BILATERAL EXTREMITIES, BUT WEAKER ON THE LEFT SIDE. PERRLA. PTS DAUGHTER WAS AT BEDSIDE A FEW TIMES AND WAS DOING ROM W/ THE PT. SHE IS VERY HELPFUL IN CARE AND WAS PERFORMING ORAL CARE WELL. PT STATED HIS PAIN WAS 8-10/10 THIS SHIFT AND WAS MEDICATED W/ MORPHINE. PT WAS STARTED ON LOPRESSOR PUSHES FOR HIS HR. HR RANGING FROM 80 S-130 S. HE HAS BEEN ON THE AIRVO AND IT HAS BEEN TITRAITED DOWN. CUURENT SETTINGS OF 40L @40% AND SP02 >95%. PT IS A Q2 HR REPOSITION, Q6 CBG, HAS A CONDOM CATH INTACT DRAINING YELLOW URINE, AND HAS BEEN NPO BUT HAS CLINIMIX INFUSING. NO ACUTE CHANGES OVER NIGHT. SEE NOTES FOR ANY UPDATES.
--- NOTE | 2022-12-23 05:56 | NUR ---
PT NOW ON 8L NC SP02>97%.
--- NOTE | 2022-12-23 07:26 | NUR ---
Pt was awake, mostly alert, and able to answer some simple questions. Pupils are equal, difficult to assess reactivity as he squints and doesn't follow directions to keep eyes open. Squints eyes tightly closed. He says he is near to [place], in a hospital, but unable to say why he is in hospital. Left facial droop, and left soft palate does not rise with the right side to pt's vocalization. Does have some minimal movement of the left hand/arm, but significantly weaker than the right. Weak movements of both feet and legs noted as well. States that his coccyx is painful; repositioned to the left side with assistance of BERENICE Farfan. Daughter Jany arrived and is talking with the patient at bedside.
--- NOTE | 2022-12-23 07:36 | NUR ---
On 8 l/min of oxygen delivery, SPO2 99%. Repiratory rate 20/minute.
--- NOTE | 2022-12-23 11:28 | NUR ---
Pt is sitting up in chair, after having bedbath. RT has weaned pt down to 1.5 l/min n.c. delivery. Call to Dr. Lewis's phone, answered by OR staff, and gave message of pt's current heart rate and respiratory status, in case of reconsideration of PEG tube.
--- NOTE | 2022-12-23 14:39 | NUR ---
Spiritual care visit conducted. Patient is sitting on a chair but completely asleep (snoring loudly, PT worked with patient just prior to my visit). Nora Carmichael and another family member are bedside and they talk at length about the patient's care plan, his personality, and how they are coping with the long duration of the patient's medical recovery. They explain about the placement of a PEG tube this day and ask for prayer for the patient. I gladly supply prayer for patient and for the family. Family get tearful at the prayer and state that it was extremely refreshing and encouraging to have a prayer said. I observe more smiles and an increase in hope with the family. I will continue to remain available to apteitn and family.
--- NOTE | 2022-12-23 15:55 | NUR ---
Pt was taken to day surgery at this time.
--- NOTE | 2022-12-23 16:13 | NUR ---
SPOKE WITH [facility] AND GOT UPDATED ALLERGIES FROM PATIENTS RECORD.
--- NOTE | 2022-12-23 16:18 | NUR ---
IV SITE TERI PATENT, DRESSING D&I.
--- NOTE | 2022-12-23 17:19 | NUR ---
12/23/22 1719 Sha Mejias History, Chart, Medications and Allergies reviewed before start of procedure.MONITOR INTACT WITH CONTINUOUS PULSE OXIMETRY, CONTINUOUS END TITAL CO2, AND INTERMITTENT BLOOD PRESSURE.3-LEAD EKG REVIEWED WITH PHYSICIAN PRIOR TO START OF PROCEDURE.O2 VIA POM INTACT THROUGHOUT SEDATION/PROCEDURE.See Anesthesia record.
--- NOTE | 2022-12-23 18:27 | NUR ---
Pt arrived back to PCU 1; He was awake and talking to staff. Transferred using lift from stretcher to the bed, and c/o right hip pain, so he was positioned to comfort on his left side. Spo2 87% on 4 l/min, increased oxygen delivery to 5 l/min and spo2 improved to 90-91% while sleeping. He is drowsy now. Blood pressure stable. Noted heart rate is 115 bpm, so labetolol gtt was restarted after a pause since 1720 per report from BERENICE Dalton due to low blood pressure while in day surgery. PEG tube surgical site observed, and noted to be intact, clean and dry. Condom cath noted also in place, draining clear yellow urine into collection bag. Noted pt was shivering and he did when asked that he was freezing. Given a warm blanket and he said that he felt better. SCDs in place. Call to daughter Jany to update her on pt condition. She said that she will be in to see the pt tomorrow.
[2022-12-24] VITALS (9 sets, daily range): BP systolic 98–150; BP diastolic 54–99
[2022-12-24 04:35] LABS: Triglycerides 118 mg/dL (30-160)
--- NOTE | 2022-12-24 04:39 | NUR ---
SHIFT SUMMARY PT IS A&OX2, SELF AND FAMILY. HE AWAKES TO VERBAL AND PHYSICAL STIMULI BUT DOES NOT STAY AWAKE. HE HAS BEEN LETHARGIC AND SLEEPING SINCE GETTING BACK FROM HIS PEG TUBE PLACEMENT ON 12/23. PT HAS LEFT SIDED NEGLECT SINCE THE STROKE. HE IS UNABLE TO LIFT HIS ARMS AND LEGS BUT HE IS ABLE TO MOVE HIS FINGERS AND TOES. PT HAS NOT STATED PAIN THIS SHIFT ONLY DISCOMFORT. WHICH REPOSITIONING HAS HELPED. HE HAS BEEN ON A LABETALOL GTT AT 1MG/MIN T/O THE SHIFT AND VS HAVE REMAINED STABLE. Q15 BP CHECKS. ON TELE HE HAS BEEN 90 S-120 S. PT IS A Q2 HR REPOSITION, Q6 CBG, HAS A CONDOM CATH INTACT DRAINING YELLOW URINE, AND HAS BEEN NPO BUT HAS CLINIMIX INFUSING. PEG TUBE HAS AN INTACT AND DRY DRESSING AROUND IT. IT CAN BE ACCESSED 12/24. PT WAS ON 5L NC AT THE START OF THE SHIFT AND IS NOW ON 5L ON THE VENTI MASK DUE TO DESATURATING TO THE LOW 80 S. NO OTHER CHANGES OVERNIGHT. SEE NOTES FOR ANY UPDATES.
[2022-12-24 08:25] LABS: Hematocrit 39.2 % (37.0-53.0); Hemoglobin 13.4 g/dL (13.5-17.5); Mean Corpuscular HGB 27.9 pg (26.0-34.0); Mean Corpuscular HGB Conc 34.2 g/dL (31.5-36.5); Mean Corpuscular Volume 82 fL (80-100); Mean Platelet Volume 11.4 fL (9.1-12.4); Platelet Count 530 K/mm3 (150-400); RDW Coefficient Variation 13.5 % (11.7-14.2); RDW Standard Deviation 39.9 fL (35.1-46.3); White Blood Cell Count 12.84 K/mm3 (4.00-11.30)
[2022-12-24 08:43] LABS: Albumin, Blood 1.7 g/dL (3.4-5.0); Albumin/Globulin Ratio 0.5 (0.8-1.8); Bilirubin, Total 0.7 mg/dL (0.1-1.0); Creatinine, Blood 1.11 mg/dL (0.60-1.20); Globulin, Blood 3.5 g/dL (2.2-4.0); Magnesium, Blood 2.3 mg/dL (1.6-2.4); Potassium, Blood 4.2 mmol/L (3.5-5.5); Total Protein, Blood 5.2 g/dL (6.4-8.2)
--- NOTE | 2022-12-24 09:29 | NUR ---
Pt stated nausea upon transfer with ceiling lift from bed to chair, and again with repositioning to upright sitting position in chair about 30 minutes later. Zofran given IV for relief. Speech therapist is working with him now. Daughter Jayn at the bedside.
--- NOTE | 2022-12-24 15:25 | NUR ---
Started Jevity 1.2cal at 40cc/hr. HOB elevated to 30 degrees. Repositioned to left side. Sleeping at this time.
--- NOTE | 2022-12-24 18:29 | NUR ---
SCHEDULED METOPROLOL HELD AT THIS TIME, DUE TO BLOOD PRESSURE BEING TOO LOW, OUTSIDE OF PARAMETERS. HEART RATE IS 95-122 BPM, ATRIAL FIBRILLATION.
[2022-12-25 00:36] VITALS: BP 110/68
[2022-12-25 03:49] LABS: Hematocrit 38.9 % (37.0-53.0); Hemoglobin 13.3 g/dL (13.5-17.5); Mean Corpuscular HGB 27.7 pg (26.0-34.0); Mean Corpuscular HGB Conc 34.2 g/dL (31.5-36.5); Mean Corpuscular Volume 81 fL (80-100); Mean Platelet Volume 10.6 fL (9.1-12.4); Platelet Count 517 K/mm3 (150-400); RDW Coefficient Variation 13.5 % (11.7-14.2); White Blood Cell Count 13.99 K/mm3 (4.00-11.30)
[2022-12-25 04:47] VITALS: BP 107/76
[2022-12-25 05:13] LABS: Albumin, Blood 1.8 g/dL (3.4-5.0); Albumin/Globulin Ratio 0.5 (0.8-1.8); Bilirubin, Total 0.8 mg/dL (0.1-1.0); Bun/Creatinine Ratio 45.8 (12.0-20.0); Calcium, Blood 7.9 mg/dL (8.5-10.1); Creatinine, Blood 1.07 mg/dL (0.60-1.20); Globulin, Blood 3.7 g/dL (2.2-4.0); Magnesium, Blood 2.6 mg/dL (1.6-2.4); Phosphorus, Blood 3.6 mg/dL (2.5-4.9); Total Protein, Blood 5.5 g/dL (6.4-8.2)
[2022-12-25 06:13] VITALS: BP 112/84
--- NOTE | 2022-12-25 06:31 | NUR ---
SHIFT SUMMARY PATIENT ALERT AND ORIENTED X2. LETHARGIC, BUT OPENS EYES TO SOUND FAIRLY EASILY. PATIENT HAD NO COMPLAINTS OF PAIN OR SHORTNESS OF BREATH. SOME RHONCHI NOTED IN L LUNG, PATIENT CONTINUES ON 1 LITER O2 VIA NC. BLOOD PRESSURE STABLE. HEART RATE AVERAGING BETWEEN 100-125, OCCASIONALLY TOUCHING UP TO THE 140'S. TUBE FEED RUNNING AT 50 ML/HR, PATIENT SEEMS TO BE TOLERATING WELL. WILL CONTINUE TO MONITOR. CALL LIGHT WITHIN REACH.
[2022-12-25 08:42] VITALS: BP 120/105
[2022-12-25 11:42] VITALS: BP 130/107
--- NOTE | 2022-12-25 12:31 | NUR ---
Tube feed increased to 80cc/hour. Pt care completed. Mepilex applied to coccyx, which incidently also appears to be less red without ulcerations as compared to yesterday. Pt was continent of urine once, and incontinent of soft brown formed stool once. After hygiene care was done, pt was transfered with ceiling lift to the recliner chair. He is now sleeping.
--- NOTE | 2022-12-25 18:46 | NUR ---
Call to Dr. Mcintyre regarding CBG elevated this evening. New order received. CBG and correction scale insulin changed to ACHS to go with bolus feedings now to be at 0600, 1200, 1600 and 2100.
[2022-12-25 18:55] VITALS: BP 119/61
--- NOTE | 2022-12-25 18:56 | NUR ---
The pt has been more alert and talkative, active with his right hand and right leg when awake today. Easily fatigued and sleeps soundly in between care. He is still forgetful and confused, but pleasantly conversant and makes many jokes when awake. He has been able to communicate when he feels the need to void, but still having incontinence so condom cath remains in place. Incontinent of stool, soft, brown and formed. Tube feedings changed to bolus this afternoon. Adjustment to insulin and CBG to match feeding times. Call to Dr. Mcintyre for elevated CBG this evening; additional dose of Glargine was given, and she said that she will adjust that dose in the morning. The pt is in atrial fibrillation, with frequent but brief spikes in his heart rate to 120-140 bpm when there is activity. He is no longer requiring any supplemental oxygen today.
[2022-12-26] VITALS (7 sets, daily range): BP systolic 112–139; BP diastolic 53–85
[2022-12-26 06:03] LABS: Hematocrit 41.4 % (37.0-53.0); Hemoglobin 13.8 g/dL (13.5-17.5); Mean Corpuscular HGB 27.5 pg (26.0-34.0); Mean Corpuscular HGB Conc 33.3 g/dL (31.5-36.5); Mean Corpuscular Volume 83 fL (80-100); Mean Platelet Volume 10.9 fL (9.1-12.4); Platelet Count 679 K/mm3 (150-400); RDW Coefficient Variation 13.7 % (11.7-14.2); RDW Standard Deviation 40.6 fL (35.1-46.3); Red Blood Cell Count 5.02 M/mm3 (4.30-5.90); White Blood Cell Count 14.53 K/mm3 (4.00-11.30)
[2022-12-26 06:21] LABS: Albumin, Blood 1.9 g/dL (3.4-5.0); Albumin/Globulin Ratio 0.5 (0.8-1.8); Bilirubin, Total 0.6 mg/dL (0.1-1.0); Bun/Creatinine Ratio 37.8 (12.0-20.0); Calcium, Blood 7.8 mg/dL (8.5-10.1); Creatinine, Blood 0.98 mg/dL (0.60-1.20); Globulin, Blood 3.5 g/dL (2.2-4.0); Magnesium, Blood 2.6 mg/dL (1.6-2.4); Potassium, Blood 4.1 mmol/L (3.5-5.5); Total Protein, Blood 5.4 g/dL (6.4-8.2)
--- NOTE | 2022-12-26 06:49 | NUR ---
SHIFT SUMMARY PATIENT ALERT AND ORIENTED X2. PATIENT SLEPT ALL NIGHT, APNIC EPISODES NOTED, 2 LITERS O2 VIA NASAL CANULA PLACED ON PATIENT TO HELP MAINTAIN SPO2 >90%. VITAL SIGNS STABLE. PATEINT TOLERATING BOLUS TUBE FEEDS.WILL CONTINUE TO MONITOR. CALL LIGHT WITHIN REACH.
--- NOTE | 2022-12-26 15:59 | NUR ---
pt on room air at this time. sats remain 96% or higher while this rn is observing. pt denies any shortness of breath.
--- NOTE | 2022-12-26 16:28 | NUR ---
SHIFT SUMMARY PT CONTINUES TO AMBULATE WELL. REPORTED FEELING WORSE AFTER HIS WALK, BUT POST PAIN MEDICATION HE STATES HE FEELS MUCH BETTER. CTA DONE TODAY. PT RESTING IN BED ENJOYING HIS DR. MAXWELL. HR REMAINS SINUS RYTHM. [id number], WITH SOME FORGETFULLNESS. PLAN IS TO AWAIT CTA RESULTS AND POSSIBLY DISCHARGE.
--- NOTE | 2022-12-26 16:31 | NUR ---
SHIFT SUMMARY PT REMAINS WEAK ON LEFT SIDE BUT HAS BEEN PERFORMING ROM EXCERCISES. HE REPORTS PAIN TO R KNEE, MANAGED PER EMAR. DECLINED TO BE UP IN CHAIR UNTIL 1630. MAKES NEEDS MET. TOLERATING TUBE FEEDS WELL. DENIES NAUSEA. MULTIPLE BOWEL MOVEMENTS. REPOSITIONING PT Q2 OR MORE TOLERATED. TITRATED TO ROOM AIR AT THIS TIME. SATS REMAIN 94% OR HIGHER. HR REMAINS AFIB BUT RATE HAS BEEN THE 90'S TO LOW 100'S T/O SHIFT. PLAN IS TO CONTINUE WORKING WITH PT/OT AND POSSIBLY HAVE SWALLOW STUDY ON WEDNESDAY.
[2022-12-27] VITALS (7 sets, daily range): BP systolic 108–148; BP diastolic 61–91
--- NOTE | 2022-12-27 03:52 | NUR ---
SHIFT SUMMARY PT HAS RESTED T/O THE SHIFT, REPOSITIONED FREQUENTLY. PT HAD ONE BM THIS SHIFT. TOLERATED TUBE FEED THIS SHIFT, WITH NO N/V. PT COMPLAINS OF SOME CHEST DISCOMFORT. VITALS HAVE BEEN STABLE, NO ACUTE CHANGES ON TELE. DISCUSSED WITH BUSINESS DIVISION CHAIRBERENICE DOZIER, WHO STATES THAT NO ADDTIONAL INTERVENTIONS NECESSARY FOR CHEST DISCOMFORT THERE HAVE BEEN NO ACUTE CHANGES IN VITALS OR ON TELE. PT MEDICATED FOR PAIN PER EMAR WITH EFFECT, PT WAS ABLE TO SLEEP SHORTLY AFTER WITH NO FURTHER COMPLAINTS OF PAIN. SKIN WARM AND DRY, RESP E/U, SATS WNL ON RA. PT PLESANTLY CONFUSED, ABLE TO FOLLOW SOME DIRECTIONS. BED ALARM IN PLACE, BED IN LOWEST POSITION.
[2022-12-27 04:45] LABS: Hematocrit 41.8 % (37.0-53.0); Mean Corpuscular HGB 27.9 pg (26.0-34.0); Mean Corpuscular HGB Conc 33.5 g/dL (31.5-36.5); Mean Corpuscular Volume 83 fL (80-100); Mean Platelet Volume 10.9 fL (9.1-12.4); Platelet Count 732 K/mm3 (150-400); RDW Coefficient Variation 14.1 % (11.7-14.2); RDW Standard Deviation 42.4 fL (35.1-46.3); Red Blood Cell Count 5.02 M/mm3 (4.30-5.90); White Blood Cell Count 13.83 K/mm3 (4.00-11.30)
[2022-12-27 05:02] LABS: Albumin/Globulin Ratio 0.5 (0.8-1.8); Bilirubin, Total 0.7 mg/dL (0.1-1.0); Bun/Creatinine Ratio 34.3 (12.0-20.0); Calcium, Blood 7.9 mg/dL (8.5-10.1); Creatinine, Blood 0.91 mg/dL (0.60-1.20); Globulin, Blood 3.7 g/dL (2.2-4.0); Magnesium, Blood 2.6 mg/dL (1.6-2.4); Potassium, Blood 4.6 mmol/L (3.5-5.5); Total Protein, Blood 5.7 g/dL (6.4-8.2)
--- NOTE | 2022-12-27 09:10 | NUR ---
ASSESSMENT PT ALERT AND ORIENTED TO SELF. FOLLOWING COMMANDS WHILE ASSISTING WITH CHANGING. PT WITH LARGE BM, INCONTINENT. PT CHANGED AND REPOSITIONED ONTO LEFT SIDE. DAUGHTER TO BEDSIDE. PROVIDED EDUCATION ON G-TUBE MANAGEMENT, PROVIDING WATER VIA G-TUBE, AND PROVIDING MEDICATIONS VIA G-TUBE. ALSO PROVIDED EDUCATION ON INSULIN ADMINISTRATION. DAUGHTER PLANS TO BE AROUND UNTIL 1600 TODAY. GOAL IS TO HAVE DAUGHTER DO HANDS ON TRAINING WITH G-TUBE AND MEDICATIONS IF ABLE. REST OF ASSESSMENT CHARTED. CALL LIGHT IN REACH AND DAUGHTER ENCOURAGED TO USE IT IF NEEDED.
--- NOTE | 2022-12-27 12:53 | NUR ---
EDUCATION TO DAUGHTER PT DUE FOR MEDICATIONS, WATER BOLUS, AND TUBE FEEDING BOLUS. DTR AT BEDSIDE AND VERBALIZES DESIRE FOR HANDS ON TRAINING AFTER OBSERVING THIS MORNING. THIS RN STANDS AT BEDSIDE WITH DAUGHTER AND WALKS HER THROUGH PROVIDING MEDICATION, WATER, AND FEEDING BOLUS THROUGH TUBE. DAUGHTER ABLE TO PREFORM TASKS WELL WITH VERBAL DIRECTION FROM RN. ADDITIONAL QUESTIONS ADDRESSED. PT SLEEPING AT THIS TIME. DAUGHTER LEAVING FOR A SHORT TIME THIS AFTERNOON BUT WILL RETURN.
--- NOTE | 2022-12-27 17:34 | NUR ---
SHIFT SUMMARY NO MAJOR CHANGES FOR PT THROUGHOUT SHIFT. PT CONTINUES TO TOLERATE TUBE FEEDINGS WELL. DAUGHTER AT BEDSIDE THROUGHOUT MOST OF THE DAY. ABLE TO PROVIDE HER WITH DEMONSTRATION AND VERBAL INSTRUCTION X 1 AND THEN DTR WAS ABLE TO HAVE HANDS ON EDUCATION X 2. DAUGHTER DID WELL WITH INSTRUCTION AND DEMONSTRATING SKILLS. PT CONTINUES WITH LOOSE STOOLS. PT WITH IRRITATION TO GLUTEAL CLEFT. BARRIER CREAM UTILIZED TO DECREASE IRRITATION. NO ADDITIONAL ISSUES AT THIS TIME. WILL PROVIDE REPORT TO ONCOMING RN.
[2022-12-28] VITALS (7 sets, daily range): BP systolic 122–151; BP diastolic 52–99
--- NOTE | 2022-12-28 00:45 | NUR ---
HOSPITALIST NOTIFIED GLUCOSE LEVEL OF 365 NOTED, HOSPITALIST NOTIFIED, HS DOSE OF HUMALOG 6 UNITS WAS GIVEN, HOSPITALIST SAID SHE WOULD CALL BACK FOR FURTHER ORDERS.
--- NOTE | 2022-12-28 02:00 | NUR ---
HOSPITALIST ORDERED FOR GLUCOSE LEVEL TO BE CHECKED AGAIN, IF >300 GIVE 10 UNITS INSULIN GLARGINE, GLUCOSE LEVEL WAS 233, NO INSULIN WAS GIVEN, GLUCOSE LEVEL SCHEDULED FOR 0600.
--- NOTE | 2022-12-28 05:54 | NUR ---
SHIFT SUMMARY NO ACUTE CHANGES NOTED, PT REMAINS ALERT WITH OCCASIONAL CONFUSION, VSS, ON RA, AFIB, DENIES PAIN, Q2 TURNS & ORAL CARE PROVIDED, CONTINUES TO HAVE LOOSE STOOLS, ATTENDS CHANGED PRN, BARRIER CREAM APPLIED, TOLERATING FEEDS, CALL LIGHT IN REACH, WCTM & REPORT TO DAY RN.
[2022-12-28 09:14] LABS: Digoxin (Lanoxin) 0.81 ug/mL (0.80-2.00)
--- NOTE | 2022-12-28 12:57 | NUR ---
AM NOTE/ TRANSFER PATIENT IS ALERT AND ORIENTED TO PERSON AND SELF, BUT IS INTERMITTENTLY CONFUSED. UPON ASSESSMENT PATIENT DEMONSTRATED CVA DEFICIT ON THE UPPER AND LOWER EXTREMITIES. MEDICATION ADMINISTRATION VIA PEG TUBE PER PROTOCOL AND FEEDING COMPLETED AT 1200. PATIENT IS PREPARED FOR TRANSFER. REPORT GIVEN TO RECEIVING RN.
--- NOTE | 2022-12-28 17:44 | NUR ---
PATIENT IS ALERT AND CONFUSED. HE HAS BEEN RESTING IN BED SINCE HIS TRANSFER UP TO MEDICAL FLOOR. PT ATTEMPTED TO WORK WITH THE PATIENT TODAY. THE PATIENT'S DAUGHTER WAS AT THE BEDSIDE TODAY. PATIENT IS INCONTINENT OF BOWEL AND BLADDER. LOOSE STOOLS. WILL CONTINUE TO MONITOR
--- NOTE | 2022-12-29 01:02 | NUR ---
NOTIFIED DR CURRAN OF [facility] FOLOWED HAS SLIDING SCALE. NO NEW ORDER AT THIS TIME.
[2022-12-29 04:37] VITALS: BP 120/75
[2022-12-29 04:55] LABS: BASOPHILS PERCENT AUTO 1 % (0-2); EOSINOPHILS ABSOLUTE AUTO 0.61 K/mm3 (0.00-0.68); EOSINOPHILS PERCENT AUTO 4 % (0-6); Hematocrit 43.2 % (37.0-53.0); Hemoglobin 14.1 g/dL (13.5-17.5); IMMATURE GRAN ABSOLUTE AUTO 0.06 K/mm3 (0.00-0.10); IMMATURE GRAN PERCENT AUTO 0 % (0-1); LYMPHOCYTES PERCENT AUTO 12 % (21-46); MONOCYTES ABSOLUTE AUTO 1.74 K/mm3 (0.16-1.47); MONOCYTES PERCENT AUTO 11 % (4-13); Mean Corpuscular HGB 27.6 pg (26.0-34.0); Mean Corpuscular HGB Conc 32.6 g/dL (31.5-36.5); Mean Corpuscular Volume 85 fL (80-100); NEUTROPHILS ABSOLUTE AUTO 11.19 K/mm3 (1.96-9.15); NEUTROPHILS PERCENT AUTO 71 % (41-73); Platelet Count 862 K/mm3 (150-400); RDW Standard Deviation 43.2 fL (35.1-46.3); Red Blood Cell Count 5.11 M/mm3 (4.30-5.90)
[2022-12-29 05:20] LABS: Albumin, Blood 2.1 g/dL (3.4-5.0); Anion Gap 1 mmol/L (6-16); Blood Urea Nitrogen 28 mg/dL (8-24); Bun/Creatinine Ratio 28.7 (12.0-20.0); CO2, Blood 30 mmol/L (21-32); Chloride, Blood 106 mmol/L (98-108); Creatinine, Blood 0.98 mg/dL (0.60-1.20); Glomerular Filtration Rate 82 (60-); Glucose, Blood 225 mg/dL (70-99); Magnesium, Blood 2.6 mg/dL (1.6-2.4); Phosphorus, Blood 2.1 mg/dL (2.5-4.9); Potassium, Blood 4.4 mmol/L (3.5-5.5); Sodium, Blood 137 mmol/L (136-145)
--- NOTE | 2022-12-29 05:49 | NUR ---
Q2HR TURNS, Q4HR ORAL CARE. PT WITH FREQUENT STOOLING. CREAM APPLIED WITH CLEANING, BOTTOM IS VERY RED AND TENDER.
[2022-12-29 08:29] VITALS: BP 106/58
[2022-12-29 12:50] VITALS: BP 135/85
[2022-12-29 15:58] VITALS: BP 121/57
[2022-12-29 17:13] VITALS: BP 150/88
--- NOTE | 2022-12-29 17:36 | NUR ---
PATIENT IS ALERT AND OREITNED TO SELF AND FOLLOWING DIRECTIONS. HE WORKED WITH PT AND OT TODAY. PATIENT WAS TRANSFERRED BY LIFT TO THE RECLINER THIS MORNING. PATIENT IS TOLERATING BOLUS FEEDS. PATIENT'S DAUGHTER WAS AT THE BEDSIDE TODAY. ORAL CARE Q4H. PATIENT IS INCONTINENT OF BOWEL ANND BLADDER. PATIENT IS LAYING ON AN AIR MATTRESS. C/O ON HIS COCCYX, SOME REDNESS NOTED. HIPS FLOATED WITH PILLOWS FOR COMFORT. WILL CONTINUE TO MONITOR
[2022-12-29 20:32] VITALS: BP 141/86
[2022-12-29] MEDS ORDERED: ARTIFICIAL TEA1 EAC1 BOTHEYES (21:53)
[2022-12-29] MEDS ORDERED: XARELTO15 MG PO (21:54)
[2022-12-29] MEDS ORDERED: TAMS.4ER PO (21:55)
[2022-12-29] MEDS ORDERED: METF500 PO (21:55)
[2022-12-29] MEDS ORDERED: METO25 PO (21:59)
[2022-12-29] MEDS ORDERED: THERA-D2000 UNIT PO (22:01)
[2022-12-30 04:44] VITALS: BP 134/72
--- NOTE | 2022-12-30 05:55 | NUR ---
PT COUGHING FREQUENTLY T/O NIGHT, COUGH MEDICINE GIVEN WITH GOOD RESULTS. PT IS UNABLE TO CLEAR SECRETIONS, Q4HR ORAL CARE AND PRN. Q2HR TURNS.
[2022-12-30 07:42] VITALS: BP 121/77
[2022-12-30 11:46] VITALS: BP 127/80
--- NOTE | 2022-12-30 16:52 | NUR ---
AM ASSESSMENT I WAS PRESENT DURING AND AGREE WITH THE STUDENT NURSE ARLIN THOMAS ASSESSMENT AND DOCUMENTATION ON THIS PATIENT
--- NOTE | 2022-12-30 18:32 | NUR ---
SHUBHAM WAS PLEASANT AND COOPERATIVE WITH CARE, HE SLEPT MUCH OF THE DAY BUT IS EASILY AROUSABLE AND RESPONDS GENERALLY APPROPRIATELY. SOME CONFUSION WAS PRESENT, DIARRHEA IS IMPROVED TODAY FROM WHAT WAS REPORTED PRIOR TO THIS SHIFT, BUT BOTTOM IS IRRITATED, BEING TREATED WITH BARRIER CREAM.
[2022-12-31 04:42] VITALS: BP 152/72
[2022-12-31 07:35] VITALS: BP 123/78
--- NOTE | 2022-12-31 07:43 | NUR ---
TOLERATING TUBE FEEDS, SLIGHT CONFUSION, FORGETFULNESS. 1 BM DIARRHEA AT 2030 LAST NIGHT, NO BM FOR REST OF SHIFT. SKIN IS RED AND BLANCHABLE IN [place] AREA. Q6 CBG CHECKS, 3 UNITS AT 0600. INCONTINENT OF BOWEL AND BLADDER. NPO MAINTAINED.
[2022-12-31 10:15] VITALS: BP 126/115
[2022-12-31 12:24] VITALS: BP 150/75
[2022-12-31 15:52] VITALS: BP 120/78
--- NOTE | 2022-12-31 15:59 | NUR ---
PAOLA filled out with pt's daughter over the phone with Violet Higgins RN present as well. To be signed by physician prior to discharge to SNF in [facility].
--- NOTE | 2022-12-31 17:27 | NUR ---
SHIFT SUMMARY PATIENT WITH HALLUCINATIONS TODAY. SEVERAL LOOSE BM THROUGHOUT DAY. PATIENT UNABLE TO VERBALIZE ANY PAIN TODAY. CONFUSED BUT COOPERATIVE WITH CARE. WILL CONTINUE TO MONITOR.
--- NOTE | 2022-12-31 18:24 | NUR ---
THIS DIRECTOR OF CLAIMS HAS REVIEWED AND AGREES WITH ALL NOTES AND ASSESSMENTS BY BERENICE LADI.
[2023-01-01 05:53] VITALS: BP 140/81
--- NOTE | 2023-01-01 07:37 | NUR ---
CALL CALL FROM [employer] TO NOTIFY OF 12 BEATS OF VT. PT SAID HE HAD NO CARDIAC SYMPTOMS. DAUGHTER CONCERNED ABOUT PT FEELING HOT. TEMPERATURE 99.2. CM SAID TRANSPORT BOOKED FOR 929. DR GUILLEN CALLED TO NOTIFY. SHE ORDERED STAT MAGNESIUM AND RENAL FXN PANEL, TYLENOL SUPPOSITORY.
--- NOTE | 2023-01-01 07:45 | NUR ---
PT STARTED COUGHING UP FREQUENT MUCUS SECRETIONS, PROVIDED SUCTION NEEDED. MD ORDERED SCOPOLAMINE PATCH FOR SECRETIONS. PT CONTINUES TO BE CONFUSED. NO BM DURING MY SHIFT. NO CHANGES NOTED TO DEFICITS. TOLERATING TUBE FEEDS WITH NO RESIDUALS. COVID TEST ORDERED AT END OF SHIFT, AWAITING SWAB BY LAB PERSONNEL. PLAN IS FOR PATIENT TO DC AROUND 0930.
--- NOTE | 2023-01-01 07:58 | NUR ---
TELE CALLED TO REPORT 12 BEAT V TACH DURING SHIFT CHANGE. THIS WAS THE FIRST OCCURANCE DURING THE SHIFT, DAY NURSE AWARE AND WILL CONTINUE TO MONITOR.
[2023-01-01] MEDS ORDERED: ASPI81CH PO (08:26)
[2023-01-01] MEDS ORDERED: DIGOX250 MCG PO (08:27)
[2023-01-01] MEDS ORDERED: ATOR40TA PO (08:27)
[2023-01-01] MEDS ORDERED: DOCU100 PO (08:27)
[2023-01-01] MEDS ORDERED: BANATROL PLUS1 EAC1 PO (08:27)
[2023-01-01] MEDS ORDERED: FURO20 PO (08:28)
[2023-01-01] MEDS ORDERED: GUAI200 PO (08:28)
[2023-01-01] MEDS ORDERED: INSULIN GL100 UNIT/3 SC (08:29)
[2023-01-01 08:30] VITALS: BP 141/67
[2023-01-01] MEDS ORDERED: DULCOLAX400 MG/5 M PO (08:30)
[2023-01-01] MEDS ORDERED: HUMALOG JU100 UNIT/2 SC (08:30)
[2023-01-01] MEDS ORDERED: Prilosec10 M1 PT (08:31)
[2023-01-01] MEDS ORDERED: Promod946 ML PO (08:31)
[2023-01-01] MEDS ORDERED: Nicoderm Cq1 EAC1 TOP (08:31)
[2023-01-01] MEDS ORDERED: TROLAMINE TOP (08:32)
[2023-01-01] MEDS ORDERED: Morphine Sulfat15 MG PO (08:33)
[2023-01-01 08:44] LABS: SARS-Cov-2 (COVID-19) PCR, MMC NEGATIVE (NEGATIVE)
[2023-01-01 08:57] LABS: BASOPHILS PERCENT AUTO 1 % (0-2); EOSINOPHILS ABSOLUTE AUTO 0.35 K/mm3 (0.00-0.68); EOSINOPHILS PERCENT AUTO 2 % (0-6); Hematocrit 43.8 % (37.0-53.0); Hemoglobin 14.5 g/dL (13.5-17.5); IMMATURE GRAN ABSOLUTE AUTO 0.06 K/mm3 (0.00-0.10); IMMATURE GRAN PERCENT AUTO 0 % (0-1); LYMPHOCYTES PERCENT AUTO 12 % (21-46); MONOCYTES PERCENT AUTO 10 % (4-13); Mean Corpuscular HGB 28.2 pg (26.0-34.0); Mean Corpuscular HGB Conc 33.1 g/dL (31.5-36.5); Mean Corpuscular Volume 85 fL (80-100); Mean Platelet Volume 9.8 fL (9.1-12.4); NEUTROPHILS ABSOLUTE AUTO 11.86 K/mm3 (1.96-9.15); NEUTROPHILS PERCENT AUTO 74 % (41-73); Platelet Count 900 K/mm3 (150-400); RDW Coefficient Variation 14.4 % (11.7-14.2); RDW Standard Deviation 44.3 fL (35.1-46.3); Red Blood Cell Count 5.15 M/mm3 (4.30-5.90); White Blood Cell Count 15.97 K/mm3 (4.00-11.30)
[2023-01-01 09:16] LABS: Albumin, Blood 2.2 g/dL (3.4-5.0); Anion Gap 1 mmol/L (6-16); Blood Urea Nitrogen 31 mg/dL (8-24); Bun/Creatinine Ratio 31.5 (12.0-20.0); CO2, Blood 28 mmol/L (21-32); Chloride, Blood 107 mmol/L (98-108); Creatinine, Blood 0.98 mg/dL (0.60-1.20); Glomerular Filtration Rate 82 (60-); Glucose, Blood 247 mg/dL (70-99); Magnesium, Blood 2.2 mg/dL (1.6-2.4); Phosphorus, Blood 2.4 mg/dL (2.5-4.9); Potassium, Blood 4.4 mmol/L (3.5-5.5); Sodium, Blood 136 mmol/L (136-145)
--- NOTE | 2023-01-01 10:54 | NUR ---
discharge note Mr Elder was discharged from [facility] via [facility] transport at 0950 [address] [facility] in [facility]. Midline catheter was removed intake prior to discharge. Pt's daughter has been with him this morning and is heading up to [place] after the transport. Pt was drowsy this morning, daughter said he was more confused than usual. pt seen by Dr Gupta, labs and CXR done as ordered. solar energy installation manager spoke to Dr Gupta and reported that OK to discharge after tests. PEG tube used this am for water bolus and for medications. Oral suctioning done, pt with frequent moist cough. No c/o pain, but pt quite drowsy. Tylenol rectal given. Pt transfered on . Call to [facility] in [place] for report - message left.
== END 2023-01-01 09:58 | DRG 64 ==
LOC: ER 20:43 → PCU 23:57 → MEDS 23:57 → ERHOLD 23:57 → MEDS 12-15 01:34 → PCU 12-15 22:58 → MEDS 12-28 13:14 → ENPENDDIS 01-01 07:53 → MEDS 01-01 09:58
PROVIDERS: Family Medicine; Internal Medicine; Student in an Organized Health Care Education/Training Program; Surgery; ADMIT Student in an Organized Health Care Education/Training Program
PROC: 5A09457 Assistance with Respiratory Ventilation, 24-96 Consecutive Hours, Continuous Positive Airway Pressure (ICD-10-PCS; 2022-12-15)
PROC: 5A0945A Assistance with Respiratory Ventilation, 24-96 Consecutive Hours, High Flow/Velocity Cannula (ICD-10-PCS; 2022-12-16)
PROC: 3E0G76Z Introduction of Nutritional Substance into Upper GI, Via Natural or Artificial Opening (ICD-10-PCS; 2022-12-23)
PROC: 0DH63UZ Insertion of Feeding Device into Stomach, Percutaneous Approach (ICD-10-PCS; principal; 2022-12-23 16:00)
DX: I63.511 Cerebral infarction due to unspecified occlusion or stenosis of right middle cerebral artery (principal); J69.0 Pneumonitis due to inhalation of food and vomit; J96.01 Acute respiratory failure with hypoxia; G81.94 Hemiplegia, unspecified affecting left nondominant side; I48.92 Unspecified atrial flutter; I67.4 Hypertensive encephalopathy; F11.20 Opioid dependence, uncomplicated; I47.1 Supraventricular tachycardia; I48.20 Chronic atrial fibrillation, unspecified; Z66 Do not resuscitate; R29.716 NIHSS score 16; N40.0 Benign prostatic hyperplasia without lower urinary tract symptoms; M54.50 Low back pain, unspecified; G89.29 Other chronic pain; J44.9 Chronic obstructive pulmonary disease, unspecified; H53.462 Homonymous bilateral field defects, left side; H53.461 Homonymous bilateral field defects, right side; E11.65 Type 2 diabetes mellitus with hyperglycemia; M13.861 Other specified arthritis, right knee; I65.21 Occlusion and stenosis of right carotid artery; I10 Essential (primary) hypertension; R13.10 Dysphagia, unspecified; E87.70 Fluid overload, unspecified; R29.810 Facial weakness; F17.210 Nicotine dependence, cigarettes, uncomplicated; I69.391 Dysphagia following cerebral infarction; Z20.822 Contact with and (suspected) exposure to COVID-19; Z79.84 Long term (current) use of oral hypoglycemic drugs; Z79.899 Other long term (current) drug therapy; Z88.0 Allergy status to penicillin; Z88.8 Allergy status to other drugs, medicaments and biological substances; Z88.5 Allergy status to narcotic agent; Z79.4 Long term (current) use of insulin; Z79.82 Long term (current) use of aspirin; Z79.01 Long term (current) use of anticoagulants; Z85.828 Personal history of other malignant neoplasm of skin
CPT/HCPCS: 31720; 36415; 70450; 70496; 70498; 71045; 80048; 80053; 80069; 80162; 81001; 82550; 82803; 82947; 83036; 83735; 83880; 84100; 84145; 84443; 84478; 84484; 85025; 85027; 92526; 92610; 93005; 93010; 93306; 94640; 94660; 94664; 94760; 94762; 96374-59; 97112; 97129; 97161; 97166; 97530; 99285-25; A9270; C1751; J0295; J0690; J1160; J1815; J1940; J2060; J2270; J2405; J2704; J3480; J7030; J7050; J7060; J7120; Q9967; U0004